=== PATIENT | female | born 1990 | race African-American/Black ===

== ENCOUNTER 2021-05-08 10:00 | Emergency (ER) | payer MEDICAID ==
[~2021-05-08] VITALS: Ht 157.5 cm; Wt 77.1 kg
[2021-05-08 10:02] VITALS: BP 131/88
--- NOTE | 2021-05-08 10:05 | NUR ---
30Y FEMALE BIB SELF DUE TO RING STUCK ON R 3RD FINGER. CAP REFILL <2 SECONDS, BUT FINGER SLIGHTLY SWOLLEN. DENIES PAIN. STATES APPLYING GREASE, LUBRICATION TO FINGER PRIOR TO ARRIVAL. BED LOCKED IN LOWEST POSITION, SIDE RAILS X 1. PMH: DENIES NKA
--- NOTE | 2021-05-08 10:05 | NUR ---
PT AMBULATED TO ER BED 7 WITH A STEADY GAIT.
--- NOTE | 2021-05-08 10:15 | NUR ---
Dr. Guadalupe is evaluating patient at bedside
--- NOTE | 2021-05-08 10:35 | NUR ---
Dr. Guadalupe is at bedside for ring removal procedure.
--- NOTE | 2021-05-08 10:51 | NUR ---
Contacted [employer] who states they will pick patient up from ER lobby. No ETA given from sales representative publications. Patient made aware.
--- NOTE | 2021-05-08 10:52 | NUR ---
Patient discharged with v/s stable. Written and verbal after care instructions given and explained. Patient verbalized understanding. Ambulatory with steady gait. All questions addressed prior to discharge. Advised to follow up with PMD.
== END 2021-05-08 10:52 | disposition home or self-care (01) ==
LOC: MED 10:00
DX: S60.442A External constriction of right middle finger, initial encounter (principal); W49.04XA Ring or other jewelry causing external constriction, initial encounter; Y93.89 Activity, other specified; Y92.89 Other specified places as the place of occurrence of the external cause; Y99.8 Other external cause status
CPT/HCPCS: 99284